=== PATIENT | male | born 1970 | race Caucasian/White ===

== ENCOUNTER 2017-05-07 13:45 | Emergency (ER) | payer OTHER ==
[~2017-05-07] VITALS: Ht 170.2 cm; Wt 77.5 kg
[2017-05-07 13:49] VITALS: Ht 170.2 cm; Wt 77.5 kg
[2017-05-07] MEDS ORDERED: KETOROLAC 60 MG INJ IM STA (14:18)
[2017-05-07] MEDS ORDERED: IBUP800T25 PO (14:24)
[2017-05-07] MEDS ORDERED: HYDR-906 PO (14:24)
[2017-05-07] MEDS ORDERED: CYCL-319 PO (14:24)
[2017-05-07] MEDS ORDERED: HYDROCODONE/APAP (5/325) TAB PO ONE (14:30)
--- NOTE | 2017-05-07 14:31 | ERD ---
ER Documentation Chief Complaint Date/Time DATE: 05/07/17 TIME: 14:27 Chief Complaint RIGHT SIDED ABDOMINAL/RIB PAIN X 5 DAYS, DENIES N/V, REGULAR APPETITE HPI Patient is a 46-year-old male who presents complaining of right rib cage pain that he has had since Monday. The pain is located over the lateral aspect of his rib cage and is worse with movement. He states it started when he was working out and he thinks he may have pulled a muscle on that side. He denies any other trauma. He has not tried any medications for this. He denies any change with eating. He denies any abdominal pain. He denies any fever, nausea , vomiting, diarrhea. Denies any chest pain or shortness of breath. ROS All systems reviewed and are negative except as per history of present illness. Medications Home Meds Active Scripts Hydrocodone/Acetaminophen (Elrod 5-325 Tablet) 1 Each Tablet, 1 TAB PO Q6H Y for PAIN, #20 TAB Prov:SHELLY WALLACE PA-C 05/07/17 Ibuprofen* (Motrin*) 800 Mg Tab, 800 MG PO Q6, #30 TAB Prov:SHELLY WALLACE PA-C 05/07/17 Cyclobenzaprine Hcl* (Cyclobenzaprine Hcl*) 10 Mg Tablet, 10 MG PO BID, #20 TAB Prov:SHELLY WALLACE PA-C 05/07/17 FmHx Family History: No diabetes Physical Exam Vitals Vital Signs Date Time Temp Pulse Resp B/P Pulse Ox O2 Delivery O2 Flow Rate FiO2 05/07/17 13:49 97.7 72 16 99/63 100 Physical Exam INITIAL VITAL SIGNS: Reviewed by me GENERAL: Awake, alert and oriented x 4, well appearing, nontoxic, speaking in full sentences. No acute distress NECK: Supple. No masses. Full range of motion. No meningismus. No midline tenderness. RESPIRATORY: Clear to auscultation bilaterally. Symmetric chest wall rise. No wheezing or rales. No accessory muscle use. CV: Regular rate and rhythm. No murmurs, rubs, or gallops. ABDOMEN: Soft, non-distended. Nontender. Negative [place]. Negative McBurneys point tenderness. No CVA tenderness bilaterally. No guarding. No rebound. : Deffered. EXTREMITIES: No clubbing or cyanosis. No edema. Moving all extremities normally. BACK: No midline tenderness to palpation. No step-offs. SKIN: Right lower lateral rib cage tenderness NEUROLOGIC: Normal mental status and speech. Face is symmetric. Moves all extremities equally. Motor and sensory distally intact. Normal coordination. Ambulates with a strong steady gait. Results 24 hrs Current Medications Medications (Trade) Dose Ordered Sig/Stephan Route PRN Reason Start Time Stop Time Status Last Admin Dose Admin Ketorolac Tromethamine (Toradol) 60 mg ONCE STAT IM 05/07/17 14:18 05/07/17 14:19 DC 05/07/17 14:25 Acetaminophen/ Hydrocodone Bitart (Elrod (5/325)) 1 tab ONCE ONCE PO 05/07/17 14:30 05/07/17 14:31 05/07/17 14:25 Procedures/MDM Patient has right rib cage pain. Patients is alert, oriented, well appearing, and in no distress with normal vital signs. There is no fever, tachycardia, or tachypnea. He denies any abdominal pain. He has no tenderness over his gallbladder. No fever, nausea, vomiting, or change with food. His symptoms began after he was working out and he thinks he may have pulled a muscle which I do believe this is most likely musculoskeletal. He has not tried any medications so I believe initial therapy should focus on symptomatic treatment with anti-inflammatories pain medication and muscle relaxers. He was given Toradol and Elrod here in the emergency room and discharged with ibuprofen, Elrod, and Flexeril. Patient counseled regarding my diagnostic impression and care plan. Prior to discharge all questions answered. Pt agrees with treatment plan and understands strict return precautions. Pt is instructed to follow up with primary care provider within 24-48 hours. Precautionary instructions provided including instructions to return to the ER if not improving or for any worsening or changing symptoms or concerns. Departure Diagnosis: Primary Impression: Myalgia Condition: Stable Patient Instructions: Myalgias Additional Instructions: Llame al doctor STEVIE y leticia heber ARIA PARA DENTRO DE 1-2 ALMANZA.Dgale a la secretaria que nosotros le instruimos hacer esta aria.Avise o llame si [place] condicin se empeora antes de la aria. Regresa aqui si peor o no mejor. SHELLY WALLACE PA-C May 07, 2017 14:30
== END 2017-05-07 14:39 | disposition home or self-care (01) ==
LOC: FTE 13:45
DX: M79.1 Myalgia (principal)
CPT/HCPCS: 96372; 99284; J1885